=== PATIENT | female | born 1945 ===

== ENCOUNTER 2018-07-20 08:37 | Outpatient (CLI) | payer OTHER ==
[~2018-07-20] VITALS: Ht 152.4 cm; Wt 64.0 kg
== END 2018-07-20 09:00 | disposition home or self-care (01) ==
LOC: OFIC 805 08:37
DX: H70.11 Chronic mastoiditis, right ear (principal); H69.81 Other specified disorders of Eustachian tube, right ear; H72.01 Central perforation of tympanic membrane, right ear; H61.23 Impacted cerumen, bilateral

== ENCOUNTER 2018-09-21 07:47 | Outpatient (CLI) | payer OTHER ==
[~2018-09-21] VITALS: Ht 152.4 cm; Wt 64.0 kg
== END 2018-09-21 08:10 | disposition home or self-care (01) ==
LOC: OFIC 805 07:47
DX: H70.11 Chronic mastoiditis, right ear (principal); H69.81 Other specified disorders of Eustachian tube, right ear; H72.01 Central perforation of tympanic membrane, right ear; H90.71 Mixed conductive and sensorineural hearing loss, unilateral, right ear, with unrestricted hearing on the contralateral side